=== PATIENT | female | born 1960 | race Caucasian/White ===

== ENCOUNTER 2016-12-09 12:16 | Emergency (ER) | payer OTHER ==
--- NOTE | 2016-12-09 13:05 | C.PDOC ---
History Of Present Illness The patient, a 56 y/o female, presents to the ED for evaluation of a headache which began while she was at work earlier today. After the onset of her symptoms , patient decided to check her blood pressure, which was 148/92 at the time. Patient states she has been told in the past that her blood pressure was high, but was never given any medication for it. Patient also reports dizziness during the onset of her headache, but states it has resolved now. Patient states she found improvement after eating food. Otherwise, she denies vision change, upper/lower extremity numbness/weakness. Time Seen by Provider: 12/09/16 12:27 Chief Complaint (Nursing): Medical Clearance History Per: Patient History/Exam Limitations: no limitations Onset/Duration Of Symptoms: Hrs Current Symptoms Are (Timing): Better Additional History Per: Patient Past Medical History Reviewed: Historical Data, Nursing Documentation, Vital Signs Vital Signs: Last Vital Signs Temp 97.8 F 12/09/16 13:13 Pulse 91 H 12/09/16 13:13 Resp 20 12/09/16 13:13 BP 143/92 H 12/09/16 13:13 Pulse Ox 96 12/09/16 15:17 - Medical History PMH: Anxiety (TAKES XANAX PRN) Denies: Chronic Kidney Disease Surgical History: No Surg Hx - [facility] Procedures CLOSURE SKIN & SUBCUTANEOUS NEC (03/02/01) LYMPHATIC STRUCT BIOPSY (03/02/01) Family History: States: Unknown Family Hx - Social History Hx Alcohol Use: No Hx Substance Use: No Review Of Systems Except As Marked, All Systems Reviewed And Found Negative. Eyes: Negative for: Vision Change Neurological: Positive for: Headache, Dizziness. Negative for: Weakness, Numbness Physical Exam - Physical Exam Appears: Non-toxic, No Acute Distress Skin: Normal Color, Warm, Dry Head: Atraumatic, Normacephalic Eye(s): bilateral: Normal Inspection, PERRL, EOMI, Other (no nystagmus) Oral Mucosa: Moist Neck: Normal ROM, Supple Chest: Symmetrical, No Deformity, No Tenderness Cardiovascular: Rhythm Regular, No Murmur Respiratory: Normal Breath Sounds, No Rales, No Rhonchi, No Wheezing Back: Normal Inspection, No Vertebral Tenderness, No Paraspinal Tenderness Extremity: Normal ROM, No Tenderness, No Deformity, No Swelling Neurological/Psych: Oriented x3, Normal Speech, Normal Cranial Nerves, No Cerebellar Signs, Normal Motor, Normal Sensation Gait: Steady ED Course And Treatment O2 Sat by Pulse Oximetry: 96 (on RA) Pulse Ox Interpretation: Normal Medical Decision Making Medical Decision Making: Impression: 56 y/o female with headache, dizziness and HTN Plan: * Tylenol PO * reassess and disposition Progress Notes: Patient received Tylenol PO. Patient has no fever is alert and oriented in no distress and normal neurological exam. Vital signs are stable in the ED. I advise patient on dietary changes, low sodium and to follow up with PCP Dr Hutchinson for further evaluation. Disposition Counseled Patient/Family Regarding: Need For Followup, Rx Given - Disposition Referrals: Peterson Hutchinson MD [Staff Provider] - Disposition: HOME/ ROUTINE Disposition Time: 13:04 Condition: STABLE Additional Instructions: Vaya a frank mdico o la clnica en 2-5 see sin falta, para mas evaluacin. Volver a la hermelinda de emergencia en cualquier momento si los sntomas persisten o empeoran. Instructions: Chronic Hypertension (ED) Print Language: LAO - POA Present On Arrival: None - Clinical Impression Clinical Impression: Medical assessment, HTN (hypertension) - PA / YARD CALLER / Resident Statement MD/DO has reviewed & agrees with the documentation as recorded. - Scribe Statement The provider has reviewed the documentation as recorded by the Scribe (Brenda William) All medical record entries made by the Scribe were at my direction and personally dictated by me. I have reviewed the chart and agree that the record accurately reflects my personal performance of the history, physical exam, medical decision making, and the department course for this patient. I have also personally directed, reviewed, and agree with the discharge instructions and disposition.
[2016-12-09 13:14] VITALS: BP 143/92; PULSE 91; RESP 20; TEMP 97.8
[2016-12-09 15:04] VITALS: O2SAT 96
== END 2016-12-09 13:13 | disposition home or self-care (01) ==
LOC: C.ER 12:16
DX: I10 Essential (primary) hypertension (principal); Z00.00 Encounter for general adult medical examination without abnormal findings